=== PATIENT | male | born 1940 | race Caucasian/White ===

== ENCOUNTER → 2019-02-05 | Outpatient (CLI) | payer BC ==
[2019-02-05 14:16] LABS: ADD MAN DIFF? NO
[2019-02-05 14:21] LABS: WHITE BLOOD COUNT 8.3 10^3/ul (4.8-10.8)
[2019-02-05 14:21] LABS: BASOPHIL # 0.1 10^3/ul (0.0-0.1); BASOPHILS % 0.6 % (0.0-2.0); EOSINOPHILS # 0.1 10^3/ul (0.0-0.5); EOSINOPHILS % 1.3 % (0.0-7.0); HEMATOCRIT 44.8 % (42.0-52.0); HEMOGLOBIN 15.1 g/dl (14.0-18.0); LYMPHOCYTES # 1.6 10^3/ul (0.8-2.9); LYMPHOCYTES % 19.6 % (15.0-51.0); MEAN CORPUSCULAR HEMOGLOBIN 31.7 pg (29.0-33.0); MEAN CORPUSCULAR HGB CONC 33.7 g/dl (32.0-37.0); MEAN CORPUSCULAR VOLUME 93.9 fl (82.0-101.0); MEAN PLATELET VOLUME 10.9 fl (7.4-10.4); MONOCYTE # 0.6 10^3/ul (0.3-0.9); MONOCYTES % 7.6 % (0.0-11.0); NEUTROPHIL # 5.9 10^3/ul (1.6-7.5); NEUTROPHILS % 70.4 % (39.0-77.0); PLATELET COUNT 215 10^3/UL (140-415); RED BLOOD COUNT 4.77 10^6/ul (4.70-6.10); RED CELL DISTRIBUTION WIDTH 13.2 % (11.5-14.5)
[2019-02-05 14:39] LABS: ADD UMIC NO; UR ASCORBIC ACID NEGATIVE (NEGATIVE); UR BILIRUBIN (Dip) NEGATIVE (NEGATIVE); UR BLOOD (Dip) NEGATIVE (NEGATIVE); UR CLARITY CLEAR (CLEAR); UR COLOR YELLOW (YELLOW); UR GLUCOSE (Dip) NEGATIVE (NEGATIVE); UR KETONES (Dip) NEGATIVE (NEGATIVE); UR LEUKOCYTE ESTERASE (Dip) NEGATIVE Leu/ul (NEGATIVE); UR NITRITE (Dip) NEGATIVE (NEGATIVE); UR SPECIFIC GRAVITY (Dip) 1.017 (1.003-1.030); UR TOTAL PROTEIN (Dip) NEGATIVE (NEGATIVE); UR UROBILINOGEN (Dip) NEGATIVE (NEGATIVE)
[2019-02-05 14:41] LABS: INR 0.88; PT RATIO 0.9
[2019-02-05 14:42] LABS: PARTIAL THROMBOPLASTIN TIME 27.5 Sec (23.0-35.0)
[2019-02-05 14:57] LABS: ALANINE AMINOTRANSFERASE 44 IU/L (13-69); ALBUMIN 4.1 g/dl (3.3-4.9); ALBUMIN/GLOBULIN RATIO 1.24; ALKALINE PHOSPHATASE 54 IU/L (42-121); ANION GAP 8 (5-13); ASPARTATE AMINO TRANSFERASE 31 IU/L (15-46); BILIRUBIN,INDIRECT 0.3 mg/dl (0-1.1); BILIRUBIN,TOTAL 0.3 mg/dl (0.2-1.3); BLOOD UREA NITROGEN 33 mg/dl (7-20); CARBON DIOXIDE 27 mmol/L (21-31); CHLORIDE 103 mmol/L (97-110); CREATININE 1.67 mg/dl (0.61-1.24); GLUCOSE 95 mg/dl (70-220); POTASSIUM 4.9 mmol/L (3.5-5.1); SODIUM 138 mmol/L (135-144); TOTAL PROTEIN 7.4 g/dl (6.1-8.1)
== END | disposition home or self-care (01) ==
LOC: LAB 13:45
DX: R07.89 Other chest pain (principal); D64.9 Anemia, unspecified; D68.9 Coagulation defect, unspecified; J20.9 Acute bronchitis, unspecified
CPT/HCPCS: 71046; 80053; 81003; 85025; 85610; 85730; 93005

== ENCOUNTER 2019-02-22 06:03 | Inpatient (IN) | payer BC, MEDICARE ==
[2019-02-22] MEDS: TRANEXAMIC ACID 1GM/100ML(PMX) 100 ML INTRA-OP X1 IVPB (06:00)
[2019-02-22] MEDS: TRANEXAMIC ACID 1GM/100ML(PMX) 100 ML PRE-OP X1 IVPB (06:00)
[~2019-02-22 06:03] MED LIST: TRANEXAMIC ACID 1GM/100ML(PMX) 100 ML AT CLOSURE X1 IVPB; TRANEXAMIC ACID 1GM/100ML(PMX) 100 ML AT INCISION X1 IVPB
[2019-02-22] MEDS: CEFAZOLIN 2 GM/50 ML (PMX) 50 ML (FOR WT < 120 KG) IVPB (06:55)
[2019-02-22] MEDS: LACTATED RINGER'S 1,000 ML IV ×3 (06:56→22:28)
[2019-02-22] MEDS: POLYMYXIN B 500000 UNIT INJ (06:57)
[2019-02-22] MEDS: BACITRACIN 50000 UNITS INJ (06:59)
[2019-02-22] MEDS ORDERED: TRANEXAMIC ACID 1 GM/100 ML (PMX) (07:29)
[2019-02-22] MEDS ORDERED: SEVOFLURANE 15 MIN (07:29)
[2019-02-22] MEDS ORDERED: LIDOCAINE 2% (SDV) 5 ML INJ (07:29)
[2019-02-22] MEDS ORDERED: CEFAZOLIN 1 GM INJ (07:29)
[2019-02-22] MEDS ORDERED: MIDAZOLAM 1 MG/ML 2 ML INJ ×2 (07:29)
[2019-02-22] MEDS ORDERED: FENTAnyl 50 MCG/ML VIAL (07:30)
[2019-02-22] MEDS ORDERED: PROPOFOL 20 ML (07:39)
[2019-02-22] MEDS ORDERED: ROCURONIUM 50 MG INJ (07:39)
[2019-02-22] MEDS ORDERED: DEXAMETHASONE 4 MG/ML 5 ML INJ (08:12)
[2019-02-22] MEDS ORDERED: ONDANSETRON 4 MG INJ (09:44)
[2019-02-22] MEDS ORDERED: KETOROLAC 15 MG INJ IV (10:00)
[2019-02-22] MEDS ORDERED: NALOXONE (0.4 MG/ML) INJ IV (10:00)
[2019-02-22] MEDS ORDERED: oxyCODONE 5 MG TAB PO ×2 (10:00)
[2019-02-22] MEDS ORDERED: MAGNESIUM HYDROXIDE 30ML CUP PO (10:00)
[2019-02-22] MEDS ORDERED: NACL 0.9% 3 ML SYG IV (10:00)
[2019-02-22] MEDS ORDERED: ONDANSETRON 4 MG INJ IV (10:30)
[2019-02-22] MEDS ORDERED: KETOROLAC 30 MG INJ IV (10:30)
[2019-02-22] MEDS ORDERED: LABETALOL HCL 20MG INJ IV (10:30)
[2019-02-22] MEDS ORDERED: MEPERIDINE 25 MG INJ IV (10:30)
[2019-02-22] MEDS ORDERED: hydrALAzine 20 MG INJ IV (10:30)
[2019-02-22] MEDS ORDERED: HYDROmorphONE 1 MG/5 ML IV SYRINGE IV ×3 (10:30)
[2019-02-22] MEDS ORDERED: EPHEDrine 25 MG/5 ML SYG IV (10:30)
[2019-02-22] MEDS ORDERED: DIPHENHYDRAMINE 50 MG INJ IV (10:30)
[2019-02-22] MEDS ORDERED: METOCLOPRAMIDE 10 MG INJ IV (10:30)
[2019-02-22] MEDS ORDERED: FENTAnyl 50 MCG/ML VIAL IV ×3 (10:30)
[2019-02-22] MEDS ORDERED: ALBUTEROL 0.083% (NEB) 2.5 MG/3 ML AMP HHN (10:30)
[2019-02-22] MEDS ORDERED: MIDAZOLAM 1 MG/ML 2 ML INJ IV (10:30)
[2019-02-22] MEDS ORDERED: ACETAMINOPHEN 325 MG TAB (10:43)
[2019-02-22] MEDS: ACETAMINOPHEN 325 MG TAB PO (11:34)
[2019-02-22] MEDS: GABAPENTIN 100 MG CAP PO ×3 (13:30→23:04)
[2019-02-22] MEDS: CEFAZOLIN 2 GM/50 ML (PMX) 50 ML IVPB ×2 (15:25→23:04)
[2019-02-22] MEDS: ATORVASTATIN 40 MG TAB PO (21:00)
[2019-02-22] MEDS: ACETAMINOPHEN 500 MG TAB PO (23:13)
[2019-02-23 05:18] LABS: ADD MAN DIFF? NO
[2019-02-23 05:24] LABS: WHITE BLOOD COUNT 14.3 10^3/ul (4.8-10.8)
[2019-02-23 05:24] LABS: BASOPHILS % 0.1 % (0.0-2.0); HEMATOCRIT 35.6 % (42.0-52.0); HEMOGLOBIN 12.4 g/dl (14.0-18.0); LYMPHOCYTES # 1.1 10^3/ul (0.8-2.9); LYMPHOCYTES % 7.6 % (15.0-51.0); MEAN CORPUSCULAR HEMOGLOBIN 31.6 pg (29.0-33.0); MEAN CORPUSCULAR HGB CONC 34.8 g/dl (32.0-37.0); MEAN CORPUSCULAR VOLUME 90.6 fl (82.0-101.0); MEAN PLATELET VOLUME 11.5 fl (7.4-10.4); MONOCYTE # 1.5 10^3/ul (0.3-0.9); MONOCYTES % 10.3 % (0.0-11.0); NEUTROPHIL # 11.6 10^3/ul (1.6-7.5); NEUTROPHILS % 81.2 % (39.0-77.0); PLATELET COUNT 176 10^3/UL (140-415); RED BLOOD COUNT 3.93 10^6/ul (4.70-6.10); RED CELL DISTRIBUTION WIDTH 12.9 % (11.5-14.5)
[2019-02-23 05:51] LABS: ANION GAP 7 (5-13); BLOOD UREA NITROGEN 26 mg/dl (7-20); CALCIUM 8.3 mg/dl (8.4-10.2); CARBON DIOXIDE 24 mmol/L (21-31); CHLORIDE 107 mmol/L (97-110); CREATININE 1.51 mg/dl (0.61-1.24); GLUCOSE 117 mg/dl (70-220); POTASSIUM 4.8 mmol/L (3.5-5.1); SODIUM 138 mmol/L (135-144)
[2019-02-23] MEDS: CEFAZOLIN 2 GM/50 ML (PMX) 50 ML IVPB (06:23)
[2019-02-23] MEDS: DOCUSATE SODIUM 100 MG CAP PO (08:29)
[2019-02-23] MEDS: ASPIRIN (EC) 81 MG TAB PO (08:29)
[2019-02-23] MEDS: MELOXICAM 7.5 MG TAB PO (08:30)
[2019-02-23] MEDS: GABAPENTIN 100 MG CAP PO (08:30)
[2019-02-23] MEDS ORDERED: CELECOXIB 100 MG CAP PO (09:00)
[2019-02-23] MEDS ORDERED: ONDANSETRON 4 MG INJ IV (10:00)
[2019-02-23] MEDS: LACTATED RINGER'S 1,000 ML IV (10:58)
== END 2019-02-23 12:52 | disposition home health service (06) | DRG 470 ==
LOC: REC 06:03 → MS1 11:36
PROC: 0SR904A Replacement of Right Hip Joint with Ceramic on Polyethylene Synthetic Substitute, Uncemented, Open Approach (ICD-10-PCS; principal; 2019-02-22 07:59)
DX: M16.11 Unilateral primary osteoarthritis, right hip (principal); E78.5 Hyperlipidemia, unspecified; E66.9 Obesity, unspecified; Z68.32 Body mass index [BMI] 32.0-32.9, adult; R73.03 Prediabetes; D64.9 Anemia, unspecified
CPT/HCPCS: 71045; 73530; 80048; 85025; 86850; 86900; 86901; 88304; 88311; 97116; 97161; 97530